=== PATIENT | male | born 1955 | race Caucasian/White ===

== ENCOUNTER 2018-07-31 17:30 | Emergency (ER) | payer OTHER ==
[2018-07-31] MEDS: ACETAMINOPHEN 500 MG TAB PO (17:58)
== END 2018-07-31 19:22 | disposition home or self-care (01) ==
LOC: E/R 17:30
DX: B34.9 Viral infection, unspecified (principal); J06.9 Acute upper respiratory infection, unspecified
CPT/HCPCS: 87400; 99283-25

== ENCOUNTER 2018-11-08 15:32 | Inpatient (IN) | payer OTHER ==
[2018-11-08 16:02] LABS: ADD MAN DIFF? NO
[2018-11-08 16:07] LABS: WHITE BLOOD COUNT 9.4 10^3/ul (4.8-10.8)
[2018-11-08 16:07] LABS: BASOPHILS % 0.4 % (0.0-2.0); EOSINOPHILS # 0.1 10^3/ul (0.0-0.5); HEMATOCRIT 41.7 % (42.0-52.0); HEMOGLOBIN 13.9 g/dl (14.0-18.0); LYMPHOCYTES # 0.7 10^3/ul (0.8-2.9); LYMPHOCYTES % 7.7 % (15.0-51.0); MEAN CORPUSCULAR HEMOGLOBIN 29.8 pg (29.0-33.0); MEAN CORPUSCULAR HGB CONC 33.3 g/dl (32.0-37.0); MEAN CORPUSCULAR VOLUME 89.3 fl (82.0-101.0); MEAN PLATELET VOLUME 9.2 fl (7.4-10.4); MONOCYTE # 0.2 10^3/ul (0.3-0.9); MONOCYTES % 1.8 % (0.0-11.0); NEUTROPHIL # 8.4 10^3/ul (1.6-7.5); NEUTROPHILS % 88.9 % (39.0-77.0); PLATELET COUNT 208 10^3/UL (140-415); RED BLOOD COUNT 4.67 10^6/ul (4.70-6.10); RED CELL DISTRIBUTION WIDTH 12.4 % (11.5-14.5)
[2018-11-08] MEDS: SODIUM CHLORIDE 0.9% 1L BAG IV* (16:18)
[2018-11-08 16:25] LABS: INR 0.88; PT RATIO 0.9
[2018-11-08 16:26] LABS: PARTIAL THROMBOPLASTIN TIME 28.2 Sec (23.0-35.0)
[2018-11-08 16:29] LABS: ALANINE AMINOTRANSFERASE 29 IU/L (13-69); ALBUMIN 4.4 g/dl (3.3-4.9); ALBUMIN/GLOBULIN RATIO 1.57; ALKALINE PHOSPHATASE 70 IU/L (42-121); ANION GAP 10 (5-13); ASPARTATE AMINO TRANSFERASE 34 IU/L (15-46); BILIRUBIN,INDIRECT 0.2 mg/dl (0-1.1); BILIRUBIN,TOTAL 0.2 mg/dl (0.2-1.3); BLOOD UREA NITROGEN 16 mg/dl (7-20); CALCIUM 9.3 mg/dl (8.4-10.2); CARBON DIOXIDE 27 mmol/L (21-31); CHLORIDE 103 mmol/L (97-110); CREATININE 1.23 mg/dl (0.61-1.24); Estimated GFR 59 mL/min (>60); GLUCOSE 108 mg/dl (70-220); POTASSIUM 3.7 mmol/L (3.5-5.1); SODIUM 140 mmol/L (135-144); TOTAL PROTEIN 7.2 g/dl (6.1-8.1)
[2018-11-08 16:41] LABS: TROPONIN-I < 0.012 ng/ml (0.000-0.120)
[2018-11-08 16:44] LABS: ADD UMIC NO; UR ASCORBIC ACID NEGATIVE (NEGATIVE); UR BILIRUBIN (Dip) NEGATIVE (NEGATIVE); UR BLOOD (Dip) NEGATIVE (NEGATIVE); UR CLARITY CLEAR (CLEAR); UR COLOR YELLOW (YELLOW); UR GLUCOSE (Dip) NEGATIVE (NEGATIVE); UR KETONES (Dip) NEGATIVE (NEGATIVE); UR LEUKOCYTE ESTERASE (Dip) NEGATIVE Leu/ul (NEGATIVE); UR NITRITE (Dip) NEGATIVE (NEGATIVE); UR SPECIFIC GRAVITY (Dip) 1.013 (1.003-1.030); UR TOTAL PROTEIN (Dip) NEGATIVE (NEGATIVE); UR UROBILINOGEN (Dip) NEGATIVE (NEGATIVE)
[2018-11-08] MEDS: LEVOFLOXACIN 750MG/D5W (PMX) 150 ML IVPB (17:45)
[2018-11-08] MEDS: ACETAMINOPHEN 325 MG TAB PO (17:55)
[2018-11-08] MEDS: KETOROLAC 15 MG INJ IV (17:55)
[2018-11-08] MEDS ORDERED: ONDANSETRON 4 MG INJ IV (21:00)
[2018-11-08] MEDS ORDERED: ACETAMINOPHEN 325 MG TAB PO (21:00)
[2018-11-08 21:53] LABS: LACTIC ACID 1.2 mmol/L (0.5-2.0)
[2018-11-09] MEDS ORDERED: ALBUTEROL/IPRATROPIUM (NEB) 3 ML AMP HHN
[2018-11-09] MEDS ORDERED: HYDROCODONE/APAP (5/325) TAB PO
[2018-11-09] MEDS ORDERED: NACL 0.9% 3 ML SYG IV
[2018-11-09] MEDS: SOD CHLORIDE 0.9% 1,000 ML IV ×4 (01:23→19:08)
[2018-11-09] MEDS: ACETAMINOPHEN 325 MG TAB PO ×2 (05:52→20:11)
[2018-11-09] MEDS ORDERED: AL HYDROX/MG HYDROX/SIMETH 30 ML CUP PO (06:00)
[2018-11-09] MEDS: CEFTRIAXONE 1 GM/50 ML (PMX) 50 ML IVPB ×2 (09:10→20:11)
[2018-11-09] MEDS: AZITHROMYCIN 500MG/NS (PMX) 250 ML IVPB (09:13)
[2018-11-09] MEDS: FAMOTIDINE 20 MG TAB PO (09:13)
[2018-11-09] MEDS: GUAIFENESIN/CODEINE 5ML CUP PO ×2 (12:59→20:12)
[2018-11-09] MEDS: ALBUTEROL/IPRATROPIUM (NEB) 3 ML AMP HHN ×3 (14:00→19:42)
[2018-11-09] MEDS: ATORVASTATIN 20 MG TAB PO (20:11)
[2018-11-09] MEDS ORDERED: NON-FORMULARY/PATIENT OWN MED (Simvastatin* (Zocor*) 40 MG) PO (21:00)
[2018-11-10] MEDS: ACETAMINOPHEN 325 MG TAB PO ×2 (03:54→16:20)
[2018-11-10 06:21] LABS: WHITE BLOOD COUNT 11.1 10^3/ul (4.8-10.8)
[2018-11-10 06:21] LABS: HEMATOCRIT 34.3 % (42.0-52.0); HEMOGLOBIN 11.3 g/dl (14.0-18.0); MEAN CORPUSCULAR HEMOGLOBIN 30.5 pg (29.0-33.0); MEAN CORPUSCULAR HGB CONC 32.9 g/dl (32.0-37.0); MEAN CORPUSCULAR VOLUME 92.5 fl (82.0-101.0); MEAN PLATELET VOLUME 10.2 fl (7.4-10.4); PLATELET COUNT 143 10^3/UL (140-415); POSITIVE DIFF @See below; RED BLOOD COUNT 3.71 10^6/ul (4.70-6.10); RED CELL DISTRIBUTION WIDTH 13.2 % (11.5-14.5)
[2018-11-10] MEDS: SOD CHLORIDE 0.9% 1,000 ML IV ×2 (06:32→16:00)
[2018-11-10 06:43] LABS: ADD MAN DIFF? YES
[2018-11-10 07:39] LABS: ALANINE AMINOTRANSFERASE 35 IU/L (13-69); ALBUMIN/GLOBULIN RATIO 1.11; ALKALINE PHOSPHATASE 54 IU/L (42-121); ANION GAP 9 (5-13); ASPARTATE AMINO TRANSFERASE 47 IU/L (15-46); BILIRUBIN,INDIRECT 0.3 mg/dl (0-1.1); BILIRUBIN,TOTAL 0.3 mg/dl (0.2-1.3); BLOOD UREA NITROGEN 10 mg/dl (7-20); CARBON DIOXIDE 23 mmol/L (21-31); CHLORIDE 108 mmol/L (97-110); CREATININE 1.13 mg/dl (0.61-1.24); Estimated GFR > 60 mL/min (>60); GLUCOSE 99 mg/dl (70-220); POTASSIUM 3.5 mmol/L (3.5-5.1); SODIUM 140 mmol/L (135-144); TOTAL PROTEIN 5.7 g/dl (6.1-8.1)
[2018-11-10 07:40] LABS: MAGNESIUM 1.9 mg/dl (1.7-2.5)
[2018-11-10 07:40] LABS: PHOSPHORUS 2.1 mg/dl (2.5-4.9)
[2018-11-10 08:01] LABS: ACANTHOCYTES 1+ (0-0); ANISOCYTOSIS 1+ (0-0); BAND NEUTROPHILS #M 4.9 10^3/ul (0.0-0.6); BAND NEUTROPHILS % (M) 45 % (0-4); BURR CELLS 1+ (0-0); LYMPHOCYTES #M 0.8 10^3/ul (0.8-2.9); LYMPHOCYTES % (M) 8 % (15-51); MICROCYTOSIS 1+ (0-0); OVALOCYTES 1+ (0-0); PLATELET ESTIMATE NORMAL; POIKILOCYTOSIS 1+ (0-0); SEG NEUT #M 5.8 10^3/ul (1.6-7.5); SEGMENTED NEUTROPHILS (M) % 47 % (39-77); SMUDGE%M 3 % (0-0); TARGET CELLS 1+ (0-0)
[2018-11-10] MEDS: AZITHROMYCIN 500MG/NS (PMX) 250 ML IVPB (08:30)
[2018-11-10] MEDS: CEFTRIAXONE 1 GM/50 ML (PMX) 50 ML IVPB (08:30)
[2018-11-10] MEDS: FAMOTIDINE 20 MG TAB PO (08:30)
[2018-11-10] MEDS: ALBUTEROL/IPRATROPIUM (NEB) 3 ML AMP HHN ×3 (09:26→19:50)
[2018-11-10] MEDS: PIPER-TAZO 3.375 GM IV (PMX) 100 ML IVPB ×2 (12:59→20:29)
[2018-11-10] MEDS: POTASSIUM PHOSPHATE 15 MM in SOD CHLORIDE 0.9% 250 ML IVPB (16:20)
[2018-11-10] MEDS: BUDESONIDE (NEB) 0.5MG/2ML AMP HHN (20:09)
[2018-11-10] MEDS: ATORVASTATIN 20 MG TAB PO (20:29)
[2018-11-10] MEDS: GUAIFENESIN/CODEINE 5ML CUP PO (21:32)
[2018-11-11] MEDS: PIPER-TAZO 3.375 GM IV (PMX) 100 ML IVPB ×5 (00:33→23:05)
[2018-11-11] MEDS: ACETAMINOPHEN 325 MG TAB PO ×3 (00:38→23:06)
[2018-11-11] MEDS: GUAIFENESIN/CODEINE 5ML CUP PO (01:51)
[2018-11-11 06:21] LABS: ADD MAN DIFF? NO
[2018-11-11 06:35] LABS: WHITE BLOOD COUNT 10.3 10^3/ul (4.8-10.8)
[2018-11-11 06:35] LABS: BASOPHILS % 0.2 % (0.0-2.0); HEMATOCRIT 36.5 % (42.0-52.0); HEMOGLOBIN 12.2 g/dl (14.0-18.0); LYMPHOCYTES # 0.9 10^3/ul (0.8-2.9); LYMPHOCYTES % 8.9 % (15.0-51.0); MEAN CORPUSCULAR HEMOGLOBIN 30.3 pg (29.0-33.0); MEAN CORPUSCULAR HGB CONC 33.4 g/dl (32.0-37.0); MEAN CORPUSCULAR VOLUME 90.6 fl (82.0-101.0); MEAN PLATELET VOLUME 10.5 fl (7.4-10.4); MONOCYTE # 0.3 10^3/ul (0.3-0.9); MONOCYTES % 3.2 % (0.0-11.0); NEUTROPHIL # 8.9 10^3/ul (1.6-7.5); NEUTROPHILS % 86.9 % (39.0-77.0); PLATELET COUNT 140 10^3/UL (140-415); POSITIVE DIFF @See below; RED BLOOD COUNT 4.03 10^6/ul (4.70-6.10); RED CELL DISTRIBUTION WIDTH 13.3 % (11.5-14.5)
[2018-11-11 06:57] LABS: ANION GAP 10 (5-13); BLOOD UREA NITROGEN 10 mg/dl (7-20); CALCIUM 8.1 mg/dl (8.4-10.2); CARBON DIOXIDE 24 mmol/L (21-31); CHLORIDE 106 mmol/L (97-110); CREATININE 1.15 mg/dl (0.61-1.24); Estimated GFR > 60 mL/min (>60); GLUCOSE 96 mg/dl (70-220); MAGNESIUM 2.1 mg/dl (1.7-2.5); PHOSPHORUS 2.4 mg/dl (2.5-4.9); POTASSIUM 3.8 mmol/L (3.5-5.1); SODIUM 140 mmol/L (135-144)
[2018-11-11] MEDS: FAMOTIDINE 20 MG TAB PO (09:27)
[2018-11-11] MEDS: ALBUTEROL/IPRATROPIUM (NEB) 3 ML AMP HHN ×3 (09:42→20:03)
[2018-11-11] MEDS: BUDESONIDE (NEB) 0.5MG/2ML AMP HHN ×2 (09:44→20:03)
[2018-11-11] MEDS: ATORVASTATIN 20 MG TAB PO (20:40)
[2018-11-12] MEDS: PIPER-TAZO 3.375 GM IV (PMX) 100 ML IVPB ×3 (06:28→17:32)
[2018-11-12] MEDS: ALBUTEROL/IPRATROPIUM (NEB) 3 ML AMP HHN ×3 (07:40→19:47)
[2018-11-12] MEDS: BUDESONIDE (NEB) 0.5MG/2ML AMP HHN ×2 (07:41→19:47)
[2018-11-12] MEDS: FAMOTIDINE 20 MG TAB PO (09:01)
[2018-11-12] MEDS: ACETAMINOPHEN 325 MG TAB PO (12:10)
[2018-11-12] MEDS: ATORVASTATIN 20 MG TAB PO (21:41)
[2018-11-13] MEDS: PIPER-TAZO 3.375 GM IV (PMX) 100 ML IVPB ×4 (01:09→17:21)
[2018-11-13] MEDS: BUDESONIDE (NEB) 0.5MG/2ML AMP HHN ×2 (08:33→19:38)
[2018-11-13] MEDS: ALBUTEROL/IPRATROPIUM (NEB) 3 ML AMP HHN ×3 (08:33→19:38)
[2018-11-13] MEDS: ACETAMINOPHEN 325 MG TAB PO (09:51)
[2018-11-13] MEDS: FAMOTIDINE 20 MG TAB PO (09:51)
[2018-11-13] MEDS: GUAIFENESIN/CODEINE 5ML CUP PO (11:18)
[2018-11-13] MEDS: ATORVASTATIN 20 MG TAB PO (21:39)
[2018-11-13] MEDS: DOXYCYCLINE 100 MG TAB PO (21:39)
[2018-11-14] MEDS: PIPER-TAZO 3.375 GM IV (PMX) 100 ML IVPB ×5 (00:43→23:19)
[2018-11-14] MEDS: ACETAMINOPHEN 325 MG TAB PO (02:00)
[2018-11-14] MEDS: GUAIFENESIN/CODEINE 5ML CUP PO (02:03)
[2018-11-14] MEDS: LEVOFLOXACIN 500 MG TAB PO (06:12)
[2018-11-14 07:29] LABS: HEMATOCRIT 34.7 % (42.0-52.0); HEMOGLOBIN 11.2 g/dl (14.0-18.0); MEAN CORPUSCULAR HEMOGLOBIN 29.8 pg (29.0-33.0); MEAN CORPUSCULAR HGB CONC 32.3 g/dl (32.0-37.0); MEAN CORPUSCULAR VOLUME 92.3 fl (82.0-101.0); MEAN PLATELET VOLUME 9.8 fl (7.4-10.4); PLATELET COUNT 183 10^3/UL (140-415); POSITIVE DIFF @See below; RED BLOOD COUNT 3.76 10^6/ul (4.70-6.10); RED CELL DISTRIBUTION WIDTH 13.2 % (11.5-14.5)
[2018-11-14 07:29] LABS: WHITE BLOOD COUNT 4.4 10^3/ul (4.8-10.8)
[2018-11-14 07:32] LABS: ADD MAN DIFF? YES
[2018-11-14 07:45] LABS: ALBUMIN 3.3 g/dl (3.3-4.9); ANION GAP 9 (5-13); BLOOD UREA NITROGEN 12 mg/dl (7-20); CALCIUM 8.2 mg/dl (8.4-10.2); CARBON DIOXIDE 30 mmol/L (21-31); CHLORIDE 102 mmol/L (97-110); CREATININE 0.98 mg/dl (0.61-1.24); GLUCOSE 101 mg/dl (70-220); MAGNESIUM 2.5 mg/dl (1.7-2.5); PHOSPHORUS 3.2 mg/dl (2.5-4.9); SODIUM 141 mmol/L (135-144)
[2018-11-14 08:04] LABS: BAND NEUTROPHILS #M 0.2 10^3/ul (0.0-0.6); BAND NEUTROPHILS % (M) 6 % (0-4); BURR CELLS 1+ (0-0); ERYTHROBLAST% (NRBC) (M) 1 % (0-0); GIANT THROMBO% (M) 3 % (0-0); LYMPHOCYTES #M 1.6 10^3/ul (0.8-2.9); LYMPHOCYTES % (M) 38 % (15-51); METAMYELOCYTES %M 1 % (0-0); MONOCYTE #M 0.3 10^3/ul (0.3-0.9); MONOCYTES % (M) 7 % (0-11); MYELOCYTES % (M) 1 % (0-0); PLATELET ESTIMATE NORMAL; POLYCHROMASIA 1+ (0-0); REACTIVE LYMPHOCYTES% (M) 2 % (0-0); SEGMENTED NEUTROPHILS (M) % 45 % (39-77); SMUDGE%M 11 % (0-0)
[2018-11-14] MEDS: DOXYCYCLINE 100 MG TAB PO ×2 (08:12→21:26)
[2018-11-14] MEDS: FAMOTIDINE 20 MG TAB PO (08:12)
[2018-11-14] MEDS: ALBUTEROL/IPRATROPIUM (NEB) 3 ML AMP HHN ×3 (08:40→19:47)
[2018-11-14] MEDS: BUDESONIDE (NEB) 0.5MG/2ML AMP HHN ×2 (08:41→19:47)
[2018-11-14] MEDS: ONDANSETRON 4 MG INJ IV (09:11)
[2018-11-14] MEDS: METHYLPREDNISOLONE 40 MG INJ IV ×3 (11:57→23:18)
[2018-11-14] MEDS: ATORVASTATIN 20 MG TAB PO (21:26)
[2018-11-15 05:17] LABS: MEAN CORPUSCULAR HEMOGLOBIN 29.9 pg (29.0-33.0); MEAN CORPUSCULAR HGB CONC 33.3 g/dl (32.0-37.0); MEAN CORPUSCULAR VOLUME 89.6 fl (82.0-101.0); PLATELET COUNT 266 10^3/UL (140-415); POSITIVE DIFF @See below; RED BLOOD COUNT 4.02 10^6/ul (4.70-6.10); RED CELL DISTRIBUTION WIDTH 12.8 % (11.5-14.5)
[2018-11-15 05:17] LABS: WHITE BLOOD COUNT 3.8 10^3/ul (4.8-10.8)
[2018-11-15 05:22] LABS: ADD MAN DIFF? YES
[2018-11-15 05:59] LABS: ANION GAP 8 (5-13); BLOOD UREA NITROGEN 12 mg/dl (7-20); CARBON DIOXIDE 31 mmol/L (21-31); CHLORIDE 105 mmol/L (97-110); CREATININE 0.93 mg/dl (0.61-1.24); Estimated GFR > 60 mL/min (>60); GLUCOSE 158 mg/dl (70-220); MAGNESIUM 2.7 mg/dl (1.7-2.5); PHOSPHORUS 3.2 mg/dl (2.5-4.9); POTASSIUM 4.8 mmol/L (3.5-5.1); SODIUM 144 mmol/L (135-144)
[2018-11-15] MEDS: LEVOFLOXACIN 500 MG TAB PO (06:34)
[2018-11-15] MEDS: PIPER-TAZO 3.375 GM IV (PMX) 100 ML IVPB ×2 (06:34→11:30)
[2018-11-15] MEDS: METHYLPREDNISOLONE 40 MG INJ IV ×2 (06:34→11:30)
[2018-11-15 07:03] LABS: BAND NEUTROPHILS #M 0.5 10^3/ul (0.0-0.6); BAND NEUTROPHILS % (M) 14 % (0-4); GIANT THROMBO% (M) 1 % (0-0); LYMPHOCYTES #M 0.6 10^3/ul (0.8-2.9); LYMPHOCYTES % (M) 17 % (15-51); MONOCYTE #M 0.1 10^3/ul (0.3-0.9); MONOCYTES % (M) 3 % (0-11); PLATELET ESTIMATE NORMAL; REACTIVE LYMPHOCYTES #M 0.1 10^3/ul (0.0-0.0); REACTIVE LYMPHOCYTES% (M) 5 % (0-0); SEG NEUT #M 2.3 10^3/ul (1.6-7.5); SEGMENTED NEUTROPHILS (M) % 61 % (39-77); SMUDGE%M 19 % (0-0)
[2018-11-15] MEDS: DOXYCYCLINE 100 MG TAB PO (08:36)
[2018-11-15] MEDS: FAMOTIDINE 20 MG TAB PO (08:36)
[2018-11-15] MEDS: ALBUTEROL/IPRATROPIUM (NEB) 3 ML AMP HHN ×2 (09:44→13:31)
[2018-11-15] MEDS: BUDESONIDE (NEB) 0.5MG/2ML AMP HHN (09:45)
[2018-11-15] MEDS ORDERED: PANTOPRAZOLE (EC) 40 MG TAB PO (18:00)
[2018-11-16 15:11] LABS: NIL 0.01 IU/mL; QUANTIFERON(R)-TB GOLD INDETERMINATE (NEGATIVE); TB2-NIL 0.01 IU/mL
== END 2018-11-15 15:13 | disposition short-term general hospital (02) | DRG 871 ==
LOC: E/R 15:32 → PP2 11-14 18:08 → TEL 20:52
DX: A41.9 Sepsis, unspecified organism (principal); J18.9 Pneumonia, unspecified organism; J96.01 Acute respiratory failure with hypoxia; K92.1 Melena; E78.5 Hyperlipidemia, unspecified; Z72.0 Tobacco use
CPT/HCPCS: 71045; 71250; 80048; 80053; 80069; 81003; 83605; 83735; 84100; 84484; 85025; 85610; 85730; 86480; 86635; 87040; 87070; 87086; 87400; 90686; 93005; 94640; 94664; 96374; 96375; 99291-25